=== PATIENT | female | born 1960 | race Caucasian/White ===

== ENCOUNTER 2018-06-22 11:44 | Outpatient (CLI) | payer OTHER ==
[2018-06-22 15:04] LABS: eGFR (African) > 60; eGFR (Non-African) > 60
== END 2018-06-22 13:28 ==
LOC: LAB 11:44
PROVIDERS: ATTEND Family Medicine
DX: Z00.00 Encounter for general adult medical examination without abnormal findings (principal)
CPT/HCPCS: 36415; 80053; 80061

== ENCOUNTER 2019-04-05 10:59 | Outpatient (CLI) | payer OTHER ==
[2019-04-23 10:55] LABS: BASOPHILS % 1.1 % (0.0-1.5); NEUTROPHILS # 2.6 # k/uL (1.4-7.7); eGFR (Non-African) > 60
== END 2019-04-05 11:04 | disposition home or self-care (01) ==
LOC: LAB 10:59
PROVIDERS: ATTEND Family Medicine
DX: R20.2 Paresthesia of skin (principal)
CPT/HCPCS: 36415; 80053; 84443; 85025

== ENCOUNTER 2019-04-23 09:21 | Outpatient (CLI) | payer OTHER ==
[2019-04-23 09:38] LABS: BASOPHILS % 0.4 % (0.0-1.5); NEUTROPHILS # 2.8 # k/uL (1.4-7.7)
== END 2019-04-23 09:23 ==
LOC: LAB 09:21
PROVIDERS: ATTEND Family Medicine
DX: R20.2 Paresthesia of skin (principal)
CPT/HCPCS: 36415; 84443; 85025

== ENCOUNTER 2019-05-15 16:53 | Outpatient (CLI) | payer OTHER | END 2019-05-15 16:55 | LOC: LAB 16:53 | PROVIDERS: ATTEND Family Medicine | DX: Z13.828 Encounter for screening for other musculoskeletal disorder (principal) | CPT/HCPCS: 36415; 86431 ==

== ENCOUNTER 2019-06-06 14:00 | Outpatient (CLI) | payer OTHER | END 2019-06-06 14:03 | LOC: LAB 14:00 | PROVIDERS: ATTEND Family Medicine | DX: D58.2 Other hemoglobinopathies (principal) | CPT/HCPCS: 36415; 85027 ==

== ENCOUNTER 2019-09-07 12:52 | Outpatient (CLI) | payer OTHER ==
--- NOTE | 2019-09-07 13:28 | Diagnostic Imaging Report ---
PATIENT MR#: [id number] PATIENT PATIENT NAME: JANINE CORTES DATE OF : 1960 REFERRING PHYSICIAN: Romi Saba EXAM DATE: 09/07/2019 ACCESSION NUMBER: [id number] EXAM DESCRIPTION: HAND 3 VIEWS OR MORE Exam: Right hand 3 views Indication: ORDER STATES RT HAND PAIN. (Hx) / Note time : 09/07/2019 1:12:04 PM User : Jose Raul Panchal ORDER STATES RT HAND PAIN. ------ (DICOM Hx) (DICOM Hx) Findings: No acute fracture, subluxation, dislocation or other osseous abnormality is identified. If clinical symptoms persist follow up examination may be warranted to exclude an occult process. Impression: No acute osseous abnormality. Read by: Dr. Benja Wagner Transcribed by: Transcribed Date: Electronically signed by: Dr. Benja Wagner Date signed: 09/07/2019 1:27:33 PM
== END 2019-09-07 13:02 ==
LOC: RAD 12:52
PROVIDERS: ATTEND Family Medicine
DX: M79.641 Pain in right hand (principal)
CPT/HCPCS: 73130